=== PATIENT | male | born 1945 | race Caucasian/White ===

== ENCOUNTER 2016-07-06 05:14 | Day surgery (SDC) | payer MEDICARE, BC ==
[~2016-07-06] VITALS: Ht 182.9 cm; Wt 128.3 kg
[~2016-07-06 05:14] MED LIST: ALDACTONE 25MG25 M1 PO; ASPIRIN 81M81 MG/TA2 PO; CARDURA 8MG TAB8 MG PO; COLESTID 1GM1 G PO; COZAAR100 MG PO; CUTIVATE 60 ML60 ML TP; IMODIUM 2MG CAPS2 MG PO; IRON325 M2 PO; LEVOXYL0.125 MG PO; LOMOTIL 0.025 M1 TAB PO; METAMUCIL3.4 GM/DOS PO; NORCO 325 MG-7.1 TAB PO
[2016-07-06 06:23] VITALS: BP 173/77; PULSE 65; TEMP 97.7
[2016-07-06] MEDS ORDERED: SYNTHROID 0.10.15 MG PO (06:32)
[2016-07-06] MEDS ORDERED: COZAAR 50MG50 MG/TAB PO (06:33)
[2016-07-06] MEDS ORDERED: TYLENOL 325MG325 MG PO (06:34)
[2016-07-06] MEDS ORDERED: METAMUCIL3.4 GM/DOS PO (06:36)
[2016-07-06 08:28] VITALS: BP 103/51; PULSE 64; TEMP 97.4
[2016-07-06 08:45] VITALS: BP 98/56; PULSE 55
[2016-07-06 09:00] VITALS: BP 111/61; PULSE 55
[2016-07-06 09:15] VITALS: BP 113/61; PULSE 56
[2016-07-06 09:30] VITALS: BP 107/59; PULSE 56
[2016-07-06] MEDS ORDERED: CEPHALEXIN500 M1 PO (09:44)
[2016-07-06] MEDS ORDERED: NORCO 325 MG-51 TAB PO (09:44)
== END 2016-07-06 10:15 | disposition home or self-care (01) ==
LOC: SDCO 05:14
DX: T81.31XA Disruption of external operation (surgical) wound, not elsewhere classified, initial encounter (principal); I10 Essential (primary) hypertension; Z85.038 Personal history of other malignant neoplasm of large intestine; E03.9 Hypothyroidism, unspecified
CPT/HCPCS: J0690; J2405; J2704; J3010; J7120

== ENCOUNTER → 2016-11-12 | Outpatient (CLI) | payer MEDICARE, BC ==
[~2016-11-12] MED LIST changes: +CEPHALEXIN500 M1 PO; +COZAAR 50MG50 MG/TAB PO; +NORCO 325 MG-51 TAB PO; +SYNTHROID 0.10.15 MG PO; +TYLENOL 325MG325 MG PO
== END ==
LOC: SUN.DIA 14:30
DX: E11.65 Type 2 diabetes mellitus with hyperglycemia (principal); E66.9 Obesity, unspecified; Z68.37 Body mass index [BMI] 37.0-37.9, adult; Z71.3 Dietary counseling and surveillance; I10 Essential (primary) hypertension; Z87.891 Personal history of nicotine dependence
CPT/HCPCS: G0108

== ENCOUNTER → 2016-11-24 | Outpatient (CLI) | payer MEDICARE, BC | LOC: SUN.DIA 09:08 | DX: E11.65 Type 2 diabetes mellitus with hyperglycemia (principal); E66.9 Obesity, unspecified; Z68.37 Body mass index [BMI] 37.0-37.9, adult; Z71.3 Dietary counseling and surveillance; I10 Essential (primary) hypertension; Z87.891 Personal history of nicotine dependence ==

== ENCOUNTER → 2017-01-05 | Outpatient (CLI) | payer MEDICARE, BC | LOC: SUN.DIA 09:35 | DX: E11.21 Type 2 diabetes mellitus with diabetic nephropathy (principal); I11.9 Hypertensive heart disease without heart failure; E66.9 Obesity, unspecified; Z68.36 Body mass index [BMI] 36.0-36.9, adult; Z71.3 Dietary counseling and surveillance; Z87.891 Personal history of nicotine dependence ==

== ENCOUNTER → 2017-05-04 | Outpatient (CLI) | payer MEDICARE, BC | LOC: SUN.DIA 10:17 | DX: E11.21 Type 2 diabetes mellitus with diabetic nephropathy (principal); I11.9 Hypertensive heart disease without heart failure; E66.9 Obesity, unspecified; Z68.34 Body mass index [BMI] 34.0-34.9, adult; Z71.3 Dietary counseling and surveillance; Z87.891 Personal history of nicotine dependence ==

== ENCOUNTER → 2017-11-02 | Outpatient (CLI) | payer MEDICARE, BC | LOC: SUN.DIA 09:55 | DX: E11.21 Type 2 diabetes mellitus with diabetic nephropathy (principal); I11.9 Hypertensive heart disease without heart failure; E66.9 Obesity, unspecified; Z68.34 Body mass index [BMI] 34.0-34.9, adult; Z71.3 Dietary counseling and surveillance; Z87.891 Personal history of nicotine dependence ==

== ENCOUNTER → 2018-01-31 | Outpatient (CLI) | payer MEDICARE, BC | LOC: COL.RAD 07:56 | DX: C78.7 Secondary malignant neoplasm of liver and intrahepatic bile duct (principal); E27.9 Disorder of adrenal gland, unspecified; I77.810 Thoracic aortic ectasia; Z98.890 Other specified postprocedural states; C18.7 Malignant neoplasm of sigmoid colon | CPT/HCPCS: Q9967 ==

== ENCOUNTER 2018-02-14 13:30 | Day surgery (SDC) | payer MEDICARE, BC ==
[~2018-02-14] VITALS: Ht 182.9 cm; Wt 112.3 kg
[~2018-02-14 13:30] MED LIST changes: -TYLENOL 325MG325 MG PO; +TYLENOL 8 HR PO
[2018-02-14] MEDS ORDERED: MOBIC15 MG PO (14:10)
[2018-02-14] MEDS ORDERED: GLUCOPHAGE500 MG/TAB PO (14:10)
[2018-02-14 14:33] VITALS: BP 137/71; PULSE 57; TEMP 98.1
[2018-02-14 15:15] VITALS: BP 116/55; PULSE 56; TEMP 97.4
[2018-02-14 15:30] VITALS: BP 117/65; PULSE 65
[2018-02-14 15:45] VITALS: BP 111/54; PULSE 51
== END 2018-02-14 16:10 | disposition home or self-care (01) ==
LOC: SDCO 13:30
DX: C78.7 Secondary malignant neoplasm of liver and intrahepatic bile duct (principal); Z85.038 Personal history of other malignant neoplasm of large intestine; Z92.3 Personal history of irradiation; E11.40 Type 2 diabetes mellitus with diabetic neuropathy, unspecified; Z79.84 Long term (current) use of oral hypoglycemic drugs; I10 Essential (primary) hypertension; E03.9 Hypothyroidism, unspecified; Z79.899 Other long term (current) drug therapy; Z87.891 Personal history of nicotine dependence
CPT/HCPCS: C1788; J0690; J1644; J1885; J2250; J2405; J2704; J3010; J7120

== ENCOUNTER → 2018-03-17 | Outpatient (REF) ==
[~2018-03-17] MED LIST changes: +GLUCOPHAGE500 MG/TAB PO; +MOBIC15 MG PO
== END ==
LOC: ZLAB.WCH 18:22
DX: Z01.89 Encounter for other specified special examinations (principal)

== ENCOUNTER → 2018-06-07 | Outpatient (REF) | LOC: ZLAB.WCH 16:20 | DX: Z01.89 Encounter for other specified special examinations (principal) ==

== ENCOUNTER → 2018-11-22 | Outpatient (CLI) | payer MEDICARE, BC | LOC: COL.RAD 10:03 | DX: C18.7 Malignant neoplasm of sigmoid colon (principal); E11.9 Type 2 diabetes mellitus without complications; J92.9 Pleural plaque without asbestos; Z95.9 Presence of cardiac and vascular implant and graft, unspecified; Z90.81 Acquired absence of spleen | CPT/HCPCS: Q9967 ==

== ENCOUNTER → 2019-08-02 | Outpatient (CLI) | payer MEDICARE, BC | LOC: COL.VAS 14:16 → COL.RAD 14:16 | DX: M79.605 Pain in left leg (principal); R06.02 Shortness of breath; Z85.038 Personal history of other malignant neoplasm of large intestine | CPT/HCPCS: Q9967 ==

== ENCOUNTER 2019-10-19 20:31 | Emergency (ER) | payer MEDICARE, BC ==
[~2019-10-19] VITALS: Ht 182.9 cm; Wt 114.1 kg
[2019-10-19 20:35] VITALS: TEMP 98
[2019-10-19] MEDS ORDERED: LASIX 40MG TABL40 MG PO (21:00)
[2019-10-19] MEDS ORDERED: COLACE 100100 MG/CAP PO (21:00)
[2019-10-19] MEDS ORDERED: KLOR-CON20 MEQ PO (21:01)
[2019-10-19] MEDS ORDERED: DOXYCYCLINE HY100 MG PO (21:09)
[2019-10-19 21:13] LABS: BASO % 0.2 % (0.0-2.0); GRAN # 6.7 (1.4-6.5); GRAN % 67.8 % (42.2-75.2); HEMATOCRIT 39.7 % (42.0-52.0); HEMOGLOBIN 13.3 g/dl (13.5-18.0); LYMPH # 1.7 (1.2-3.4); LYMPH % 17.1 % (20.0-51.0); MEAN CELL VOLUME 89 fl (80.0-100.0); MEAN CORPUSCULAR HEMOGLOBIN 30 pg (27.0-31.0); MEAN CORPUSCULAR HGB CONC 34 g/dl (33.0-37.0); MEAN PLATELET VOLUME 10.1 fl (7.4-10.4); MONO # 1.5 (0.1-0.6); MONO % 14.7 % (1.7-9.3); PLATELET COUNT 348 K/mm3 (130-400); RED BLOOD COUNT 4.48 M/mm3 (4.20-5.60); REDCELL DISTRIBUTION WIDTH-CV 17.2 % (11.5-14.5)
[2019-10-19 21:15] LABS: PROTHROMBIN TIME 11.2 SECONDS (9.7-12.8)
[2019-10-19 21:18] LABS: PARTIAL THROMBOPLASTIN TIME 28.9 SECONDS (26.0-37.0)
[2019-10-19 21:25] LABS: BILIRUBIN,TOTAL 0.7 mg/dL (0.0-1.0); CALCIUM 9.4 mg/dL (8.4-10.2); CREATININE, serum 1.02 (0.66-1.25); POTASSIUM 4.8 mmol/L (3.4-5.0); TOTAL PROTEIN 6.9 gm/dL (6.4-8.2)
[2019-10-19 21:51] VITALS: BP 132/77; PULSE 72
== END 2019-10-19 22:00 | disposition home or self-care (01) ==
LOC: COL.ER 20:31
PROVIDERS: Emergency Medicine
DX: S31.831A Laceration without foreign body of anus, initial encounter (principal); C18.9 Malignant neoplasm of colon, unspecified; E11.9 Type 2 diabetes mellitus without complications; I10 Essential (primary) hypertension; Z79.82 Long term (current) use of aspirin; Z79.84 Long term (current) use of oral hypoglycemic drugs

== ENCOUNTER 2019-12-09 12:59 | Emergency (ER) | payer MEDICARE, BC ==
[~2019-12-09] VITALS: Ht 182.9 cm; Wt 109.1 kg
[~2019-12-09 12:59] MED LIST changes: +COLACE 100100 MG/CAP PO; +DOXYCYCLINE HY100 MG PO; +KLOR-CON20 MEQ PO; +LASIX 40MG TABL40 MG PO
[2019-12-09 13:11] VITALS: TEMP 97
[2019-12-09 14:01] LABS: COLLECTION METHOD CLEAN CATCH
[2019-12-09 14:04] LABS: BASO # 0.1 (0.0-0.2); EOS # 0.2 (0.0-0.7); EOS % 3.5 % (0-4.0); GRAN # 2.6 (1.4-6.5); GRAN % 42.1 % (42.2-75.2); HEMATOCRIT 39.3 % (42.0-52.0); HEMOGLOBIN 12.9 g/dl (13.5-18.0); LYMPH # 2.2 (1.2-3.4); LYMPH % 36.3 % (20.0-51.0); MEAN CELL VOLUME 91 fl (80.0-100.0); MEAN CORPUSCULAR HEMOGLOBIN 30 pg (27.0-31.0); MEAN CORPUSCULAR HGB CONC 33 g/dl (33.0-37.0); MEAN PLATELET VOLUME 10.1 fl (7.4-10.4); MONO % 16.9 % (1.7-9.3); PLATELET COUNT 402 K/mm3 (130-400); RED BLOOD COUNT 4.32 M/mm3 (4.20-5.60); REDCELL DISTRIBUTION WIDTH-CV 17.2 % (11.5-14.5)
[2019-12-09 14:14] LABS: CALCIUM 9.2 mg/dL (8.4-10.2); CREATININE, serum 0.91 (0.66-1.25); POTASSIUM 3.8 mmol/L (3.4-5.0)
[2019-12-09 14:17] LABS: MUCOUS Present /lpf; PH 5 (5-8); SQUAMOUS EPITHELIAL None Seen /hpf; URINE APPEARANCE Hazy; URINE BACTERIA None Seen /hpf; URINE BILIRUBIN Negative (NEGATIVE); URINE BLOOD 3+ (NEGATIVE); URINE CALCIUM OXALATE CRYSTAL Present /hpf; URINE COLOR Yellow; URINE GLUCOSE 1+ (NEGATIVE); URINE KETONE Trace (NEGATIVE); URINE LEUKOCYTE ESTERASE Negative (NEGATIVE); URINE NITRATE Negative (NEGATIVE); URINE PROTEIN(semi-quant) Negative (NEGATIVE); URINE RBC >50 /hpf; URINE UROBILINOGEN Negative (NEGATIVE)
[2019-12-09] MEDS ORDERED: CEPHALEXIN500 M1 PO ×2 (14:38)
[2019-12-09] MEDS ORDERED: OMNICEF 300MG300 MG PO (14:40)
[2019-12-09 15:21] VITALS: BP 114/68; PULSE 61
== END 2019-12-09 15:21 | disposition home or self-care (01) ==
LOC: COL.ER 12:59
PROVIDERS: Emergency Medicine
DX: R31.9 Hematuria, unspecified (principal); C18.9 Malignant neoplasm of colon, unspecified; I10 Essential (primary) hypertension; E11.9 Type 2 diabetes mellitus without complications; E03.9 Hypothyroidism, unspecified; Z79.82 Long term (current) use of aspirin; Z79.84 Long term (current) use of oral hypoglycemic drugs; Z79.890 Hormone replacement therapy
CPT/HCPCS: J0696; J7040

== ENCOUNTER 2021-01-05 05:45 | Inpatient (IN) | payer MEDICARE, BC ==
[~2021-01-05] VITALS: Ht 170.2 cm; Wt 107.0 kg
[~2021-01-05 05:45] MED LIST changes: +OMNICEF 300MG300 MG PO
[2021-01-05 06:10] LABS: BASO % 0.2 % (0.0-2.0); EOS % 0.1 % (0-4.0); GRAN # 7.3 (1.4-6.5); GRAN % 88.7 % (42.2-75.2); HEMOGLOBIN 14.5 g/dl (13.5-18.0); LYMPH # 0.7 (1.2-3.4); LYMPH % 8.2 % (20.0-51.0); MEAN CELL VOLUME 88 fl (80.0-100.0); MEAN CORPUSCULAR HEMOGLOBIN 29 pg (27.0-31.0); MEAN CORPUSCULAR HGB CONC 33 g/dl (33.0-37.0); MONO # 0.2 (0.1-0.6); MONO % 2.4 % (1.7-9.3); PLATELET COUNT 378 K/mm3 (130-400); RED BLOOD COUNT 4.99 M/mm3 (4.20-5.60); REDCELL DISTRIBUTION WIDTH-CV 17.4 % (11.5-14.5)
[2021-01-05 07:46] LABS: ALBUMIN 4.1 gm/dL (3.5-5.0); BILIRUBIN,TOTAL 0.6 mg/dL (0.0-1.0); CALCIUM 9.6 mg/dL (8.4-10.2); CREATININE, serum 0.88 (0.66-1.25); POTASSIUM 4.8 mmol/L (3.4-5.0); TOTAL PROTEIN 8.3 gm/dL (6.4-8.2)
[2021-01-05 09:04] LABS: COLLECTION METHOD CLEAN CATCH
[2021-01-05 09:11] LABS: MUCOUS Present /lpf; PH 8 (5-8); SQUAMOUS EPITHELIAL 0-2 /hpf; URINE APPEARANCE Clear; URINE BACTERIA None Seen /hpf; URINE BILIRUBIN Negative (NEGATIVE); URINE BLOOD Negative (NEGATIVE); URINE COLOR Yellow; URINE GLUCOSE 2+ (NEGATIVE); URINE KETONE Trace (NEGATIVE); URINE LEUKOCYTE ESTERASE Negative (NEGATIVE); URINE NITRATE Negative (NEGATIVE); URINE PROTEIN(semi-quant) 1+ (NEGATIVE); URINE UROBILINOGEN Negative (NEGATIVE)
[2021-01-05] MEDS ORDERED: GLUCOPHAGE500 MG/TAB PO (10:14)
[2021-01-05] MEDS ORDERED: MAGNESIUM250 M1 PO (10:15)
[2021-01-05 13:33] VITALS: BP 158/69; PULSE 66; TEMP 98
[2021-01-05 16:00] VITALS: BP 128/69; PULSE 63; TEMP 98.4
--- NOTE | 2021-01-05 19:49 | NUR ---
Patient admitted to room 347 this afternoon. Patient seemed unaware when asked health hisory questions, but his did have a med list & allergy list she provided. Patient Ng tube to Lis per orders. Ng tube started work after Ng was irrigated per orders by . Patietn has been NPo, denies nausea & pain. Patient up to the bathroom x2, slow on his feet and unsteady. 2 assist. Ivf per orders. Vitals stable, BP improved. Bedside reprot to [facility].
[2021-01-05 20:11] VITALS: BP 145/80; PULSE 67; TEMP 97.8
--- NOTE | 2021-01-05 23:05 | NUR ---
Pt has been ok.VSS.Pain rated 0/10. Will continue to monitor.
[2021-01-06] VITALS (8 sets, daily range): BP systolic 104–156; BP diastolic 51–74; PULSE 63–76; TEMP 97.4–98.4
[2021-01-06 07:02] LABS: BASO % 0.3 % (0.0-2.0); EOS # 0.1 (0.0-0.7); EOS % 1.8 % (0-4.0); GRAN # 5.8 (1.4-6.5); GRAN % 78.4 % (42.2-75.2); HEMATOCRIT 37.4 % (42.0-52.0); LYMPH % 13.9 % (20.0-51.0); MEAN CELL VOLUME 90 fl (80.0-100.0); MEAN CORPUSCULAR HEMOGLOBIN 29 pg (27.0-31.0); MEAN CORPUSCULAR HGB CONC 33 g/dl (33.0-37.0); MONO # 0.4 (0.1-0.6); MONO % 5.3 % (1.7-9.3); PLATELET COUNT 284 K/mm3 (130-400); RED BLOOD COUNT 4.16 M/mm3 (4.20-5.60); REDCELL DISTRIBUTION WIDTH-CV 17.5 % (11.5-14.5)
[2021-01-06 07:03] LABS: HEMOGLOBIN 12.2 g/dl (13.5-18.0)
[2021-01-06 07:09] LABS: CALCIUM 8.8 mg/dL (8.4-10.2); CREATININE, serum 0.91 (0.66-1.25); POTASSIUM 4.3 mmol/L (3.4-5.0)
--- NOTE | 2021-01-06 10:37 | NUR ---
Patient resting in bed. Ng tube off for PO pills. NPO. He denies nausea. Denies the need for pain medication. Patient up to the bathroom, walker used & more steady on his feet. PT & OT orders obtained. Ivf per orders. Hao klein.
--- NOTE | 2021-01-06 12:21 | NUR ---
Initial visit; Patient thanked Security Advisor for looking in on him and offering God's blessings and to keep him in Security Advisor's prayers.
--- NOTE | 2021-01-06 12:27 | NUR ---
Patient resting in bed. His at bedside. Report he had an episode of abdominal pain, but he went away. Ng remains to [facility]. sip of water.
--- NOTE | 2021-01-06 13:30 | NUR ---
Patient up to the bathroom with OT. NG clamped per orders, will see how patient tolerates. remains at bedside.
--- NOTE | 2021-01-06 15:30 | NUR ---
oven worker met with patient and spouse to discuss discharge planning. Patient resides with spouse and plans to return home upon discharge. Patient stated his primary care provider is Dr Andres and patient denies any difficulty obtaining his prescription. Spouse stated they have presciption coverage with their insurance. Patient has been working with physical therapy and states he has a walker at home. Patient and spouse deny any concerns about returning home. Spouse states they do not have any advance directives and have been given the forms many times. Worker offered to assist with complete of advance directives if patient and spouse deisire. Patient plans to return home with spouse.
--- NOTE | 2021-01-06 18:59 | NUR ---
Patient resting in bed. Ng tube remains clamped. Patient reports he attempted to drink water & he had an episode of pain. Pain subsided. Denies nausea. Spoke to will keep NG tube tonight & keep it clamped. New Ivf ordered. at bedside. Report to Doris hale
--- NOTE | 2021-01-06 21:15 | NUR ---
PPt has been in good spirit. was athe bedside.Pain rated 0/10. Will continue to monitor.
--- NOTE | 2021-01-07 00:23 | NUR ---
Pt is complaining of not feeling well but unable to describe it. I assessed the pt then finally said, he ABD pain 7/10. Morphine 2 mg IV push was given. Will continue to monitor.
[2021-01-07 03:46] VITALS: BP 144/67; PULSE 61; TEMP 98
--- NOTE | 2021-01-07 04:22 | NUR ---
pt said, he is not feeling well and unable to describe what was wrong. Morphine was given and NG tube was connected back to suction and pt has 450 ML out.
[2021-01-07 07:55] VITALS: BP 158/76; PULSE 62; TEMP 98.8
[2021-01-07 09:46] LABS: BASO % 0.5 % (0.0-2.0); EOS # 0.2 (0.0-0.7); EOS % 2.3 % (0-4.0); GRAN # 5.9 (1.4-6.5); GRAN % 71.7 % (42.2-75.2); HEMATOCRIT 40.1 % (42.0-52.0); HEMOGLOBIN 12.9 g/dl (13.5-18.0); LYMPH # 1.5 (1.2-3.4); MEAN CELL VOLUME 89 fl (80.0-100.0); MEAN CORPUSCULAR HEMOGLOBIN 29 pg (27.0-31.0); MEAN CORPUSCULAR HGB CONC 32 g/dl (33.0-37.0); MEAN PLATELET VOLUME 11.6 fl (7.4-10.4); MONO # 0.6 (0.1-0.6); MONO % 7.1 % (1.7-9.3); PLATELET COUNT 295 K/mm3 (130-400); RED BLOOD COUNT 4.49 M/mm3 (4.20-5.60); REDCELL DISTRIBUTION WIDTH-CV 17.5 % (11.5-14.5)
[2021-01-07 10:03] LABS: CALCIUM 8.8 mg/dL (8.4-10.2); CREATININE, serum 0.81 (0.66-1.25); POTASSIUM 3.9 mmol/L (3.4-5.0)
[2021-01-07 11:47] VITALS: BP 164/72; PULSE 63; TEMP 98.5
--- NOTE | 2021-01-07 12:30 | NUR ---
PT. DENIES NAUSEA AT THIS TIME, NG TUBE CLAMPED AND MORNING MEDS ADMINISTERED BY PRIMARY RN DANDRE. PT. AMBULATED WITH PHYSICAL THERAPY AND TOLERATED WELL. IVF INFUSING, BED ALARM ON FOR SAFETY. PT. AND DENY ANY ADDITIONAL NEEDS.
[2021-01-07 15:52] VITALS: BP 161/74; PULSE 67; TEMP 98
[2021-01-07 19:30] VITALS: BP 164/80; PULSE 84; TEMP 97.9
--- NOTE | 2021-01-07 21:57 | NUR ---
Pt has been doing great after the NG tube is out. Pt tolerated food well. Will continue to monitor.
[2021-01-07 23:55] VITALS: BP 143/79; PULSE 63; TEMP 97
[2021-01-08 03:55] VITALS: BP 145/85; PULSE 57; TEMP 97.4
--- NOTE | 2021-01-08 06:30 | NUR ---
REPORT RECEIVED FROM ALEXA WHITE. PATIENT IS ALERT AND RESTING IN BED. CALL LIGHT AND BEDSIDE TABLE ARE WITHIN REACH. WILL CONTINUE TO MONITOR PATIENT THROUGHOUT SHIFT.
[2021-01-08 07:19] VITALS: BP 153/83; PULSE 60; TEMP 98.7
--- NOTE | 2021-01-08 07:52 | NUR ---
pt out to [place] with therapy, ambulating well with steady slow gait.
--- NOTE | 2021-01-08 10:59 | NUR ---
Follow up; Patient and his thanked Weed Sprayer for looking in on Jonathan and keeping him in her prayers. Jonathan seems to be a lot better today.
[2021-01-08 11:48] VITALS: BP 176/80; PULSE 68; TEMP 97.5
--- NOTE | 2021-01-08 17:15 | NUR ---
DISCHARGE INSTSRUCTIONS REVIEWED WITH PATIENT AND . INT DISCONTINUED. TIP INTACT PT TOLERATED WELL.
== END 2021-01-08 17:22 | disposition home or self-care (01) | DRG 390 ==
LOC: COL.ER 05:45 → SURG 08:59
PROVIDERS: Emergency Medicine; ADMIT Surgery
PROC: 0DH67UZ Insertion of Feeding Device into Stomach, Via Natural or Artificial Opening (ICD-10-PCS; principal; 2021-01-05)
DX: K56.600 Partial intestinal obstruction, unspecified as to cause (principal); Z85.038 Personal history of other malignant neoplasm of large intestine; Z79.82 Long term (current) use of aspirin; Z79.84 Long term (current) use of oral hypoglycemic drugs; E66.9 Obesity, unspecified; Z68.36 Body mass index [BMI] 36.0-36.9, adult
CPT/HCPCS: J2270; J2405; J3480; J7030; J7120; Q9967

== ENCOUNTER 2021-01-19 20:35 | Inpatient (IN) | payer MEDICARE, BC ==
[~2021-01-19] VITALS: Ht 180.3 cm; Wt 104.4 kg
[~2021-01-19 20:35] MED LIST changes: +MAGNESIUM250 M1 PO
[2021-01-19 21:32] LABS: HEMATOCRIT 45.2 % (42.0-52.0); HEMOGLOBIN 14.2 g/dl (13.5-18.0); MEAN CELL VOLUME 92 fl (80.0-100.0); MEAN CORPUSCULAR HEMOGLOBIN 29 pg (27.0-31.0); MEAN CORPUSCULAR HGB CONC 31 g/dl (33.0-37.0); MEAN PLATELET VOLUME 10.9 fl (7.4-10.4); PLATELET COUNT 439 K/mm3 (130-400); RED BLOOD COUNT 4.93 M/mm3 (4.20-5.60); REDCELL DISTRIBUTION WIDTH-CV 17.4 % (11.5-14.5)
[2021-01-19 21:52] LABS: ANISOCYTOSIS 1+; BAND 2 % (0-10); EOSINOPHIL 1 % (0-4); HYPOCHROMIA 1+; LYMPHOCYTE 33 % (20.0-51.0); METAMYELOCYTE 1 % (0-0); NEUTROPHILS 61 % (42.0-75.2); POIKILOCYTOSIS 1+
[2021-01-19 21:53] LABS: OVALOCYTES 1+; PLATELET ESTIMATE NORMAL (NORMAL); TEAR DROP CELLS 1+
[2021-01-19 22:13] LABS: ALBUMIN 4.5 gm/dL (3.5-5.0); BILIRUBIN,TOTAL 0.7 mg/dL (0.0-1.0); C-REACTIVE PROTEIN 3.1 mg/dL (0.0-0.9); CALCIUM 10.5 mg/dL (8.4-10.2); CREATININE, serum 1.21 (0.66-1.25); POTASSIUM 5.6 mmol/L (3.4-5.0); TOTAL PROTEIN 9.1 gm/dL (6.4-8.2)
[2021-01-20] MEDS ORDERED: MAG-OX 400400 MG/TAB PO (01:30)
[2021-01-20 08:32] VITALS: BP 154/82; PULSE 68; TEMP 98
[2021-01-20 08:33] LABS: HEMATOCRIT 43.8 % (42.0-52.0); HEMOGLOBIN 13.9 g/dl (13.5-18.0); MEAN CELL VOLUME 91 fl (80.0-100.0); MEAN CORPUSCULAR HEMOGLOBIN 29 pg (27.0-31.0); MEAN CORPUSCULAR HGB CONC 32 g/dl (33.0-37.0); MEAN PLATELET VOLUME 10.8 fl (7.4-10.4); PLATELET COUNT 449 K/mm3 (130-400); RED BLOOD COUNT 4.82 M/mm3 (4.20-5.60); REDCELL DISTRIBUTION WIDTH-CV 17.2 % (11.5-14.5)
[2021-01-20 08:37] LABS: ALBUMIN 4.1 gm/dL (3.5-5.0); BILIRUBIN,TOTAL 0.5 mg/dL (0.0-1.0); CALCIUM 9.3 mg/dL (8.4-10.2); CREATININE, serum 1.11 (0.66-1.25); POTASSIUM 4.5 mmol/L (3.4-5.0); TOTAL PROTEIN 8.2 gm/dL (6.4-8.2)
--- NOTE | 2021-01-20 09:00 | NUR ---
Patient had an episode of emesis. Zofran given. Called -Ng tube orders. Patient refuses at this time. Patient admitted to room 347 from ER. Completed admission paperwork & med list to the best of my ability. Patient not a good historian, no family at bedside.
[2021-01-20 09:27] LABS: ANISOCYTOSIS 2+; BASOPHIL 2 % (0-2); EOSINOPHIL 2 % (0-4); HYPOCHROMIA 2+; LYMPHOCYTE 29 % (20.0-51.0); NEUTROPHILS 44 % (42.0-75.2); PLATELET ESTIMATE INCREASED (NORMAL)
--- NOTE | 2021-01-20 10:23 | NUR ---
Initial visit; Patient bossman Remote Coders for looking in on him and offering God's blessings.
--- NOTE | 2021-01-20 11:30 | NUR ---
After speaking with patient agreeable for NG tube placement. Patient tolerated 14F NG to Left nares. He was thankful for cares given, it went better than patient excpected.
[2021-01-20 11:59] VITALS: BP 139/75; PULSE 71; TEMP 97.7
--- NOTE | 2021-01-20 15:46 | NUR ---
Patient resting in bed. Denies pain & nausea. Resting in bed.
[2021-01-20 16:26] VITALS: BP 141/75; PULSE 74; TEMP 97.9
[2021-01-20 19:15] VITALS: BP 137/75; PULSE 68; TEMP 98.2
--- NOTE | 2021-01-20 19:16 | NUR ---
Ng tube retaped to nose. throat spray provided. bedside report to carolina LIU
--- NOTE | 2021-01-20 22:18 | NUR ---
Pt seems in good spirit. pt does not seem nauseous.Will continue to monitor.
[2021-01-20 23:56] VITALS: BP 125/63; PULSE 74; TEMP 98.3
[2021-01-21 04:32] VITALS: BP 121/58; PULSE 65; TEMP 98.7
[2021-01-21 07:21] VITALS: BP 124/64; PULSE 100; TEMP 97.7
--- NOTE | 2021-01-21 07:32 | NUR ---
Bedside shift report received from Doris. Pt. resting in bed, this RN introducted herself. Pt. agreeable with plan of care, bed alarm on for safety, call light in reach.
[2021-01-21 11:33] VITALS: BP 145/74; PULSE 81; TEMP 97.7
--- NOTE | 2021-01-21 13:33 | NUR ---
Pt. progressing w/ plan of care. Pt. denies N/V and tolerated clear liquid diet for lunch. NG tube clamped per Dr. Grigsby order. Pt OOB in chair, supportive at bedside. Call light in reach, safety ensured.
[2021-01-21 16:00] VITALS: BP 141/79; PULSE 71; TEMP 97.7
--- NOTE | 2021-01-21 17:09 | NUR ---
painting trades worker met withe patient and his spouse to discuss discharge planning. Patient is a readmission and was doing well until he had another small bowel obstruction. Patient has been independent with his activities of daily living and plans to return home upon discharge. Plan is return home with spouse.
--- NOTE | 2021-01-21 19:05 | NUR ---
Report given to Doris. RN Doris familiar with this patient. Pt. resting in bed and needs assessed. Pt. reports he is comfortable. IVF infusing per order, pt. only doing OK with clear liquid diet, not a lot of PO intake. Safety maintained, call light in reach.
[2021-01-21 19:40] VITALS: BP 156/69; PULSE 76; TEMP 98.3
[2021-01-22] VITALS: BP 125/63; PULSE 66; TEMP 97.8
--- NOTE | 2021-01-22 03:26 | NUR ---
Pt has been doing good. order to DC Ng tube is in placed. Pain rated 0/10. will continue to monitor.
[2021-01-22 03:41] VITALS: BP 130/62; PULSE 65; TEMP 97.6
--- NOTE | 2021-01-22 06:29 | NUR ---
pt has been good NG tube is out per order. Will continue to monitor
[2021-01-22 07:59] VITALS: BP 141/75; PULSE 69; TEMP 97.8
[2021-01-22 08:05] LABS: HEMATOCRIT 37.3 % (42.0-52.0); MEAN CELL VOLUME 91 fl (80.0-100.0); MEAN CORPUSCULAR HEMOGLOBIN 29 pg (27.0-31.0); MEAN CORPUSCULAR HGB CONC 31 g/dl (33.0-37.0); MEAN PLATELET VOLUME 10.8 fl (7.4-10.4); PLATELET COUNT 455 K/mm3 (130-400); RED BLOOD COUNT 4.08 M/mm3 (4.20-5.60); REDCELL DISTRIBUTION WIDTH-CV 17.1 % (11.5-14.5)
[2021-01-22 08:19] LABS: ALBUMIN 3.2 gm/dL (3.5-5.0); BILIRUBIN,TOTAL 0.3 mg/dL (0.0-1.0); CALCIUM 8.2 mg/dL (8.4-10.2); CREATININE, serum 0.9 (0.66-1.25); POTASSIUM 3.8 mmol/L (3.4-5.0)
[2021-01-22 08:40] LABS: HEMOGLOBIN 11.7 g/dl (13.5-18.0)
[2021-01-22 09:45] LABS: BAND 1 % (0-10); BASOPHIL 1 % (0-2); EOSINOPHIL 6 % (0-4); LYMPHOCYTE 13 % (20.0-51.0); METAMYELOCYTE 1 % (0-0); NEUTROPHILS 52 % (42.0-75.2)
[2021-01-22 09:46] LABS: ANISOCYTOSIS 1+; PLATELET ESTIMATE INCREASED (NORMAL)
[2021-01-22 09:48] LABS: HYPOCHROMIA 2+
[2021-01-22 09:49] LABS: BURR CELLS 1+; SCHISTOCYTES 1+
[2021-01-22 10:48] LABS: PATHOLOGY DIFF REVIEW OK
--- NOTE | 2021-01-22 11:24 | NUR ---
Patient alert and oriented, answers questions appropriately. See assessment. Abdomen soft, obese, non tender. +Flatus. Tolerated full liquid diet. No c/o at this time.
[2021-01-22 12:00] VITALS: BP 144/67; PULSE 72; TEMP 98
--- NOTE | 2021-01-22 12:42 | NUR ---
Initial visit (this stay) although patient recognized Gin Operator from former visits. Patient doing well and thanked Gin Operator for offering God's blessings.
[2021-01-22 15:25] VITALS: BP 136/71; PULSE 73; TEMP 98.6
--- NOTE | 2021-01-22 17:23 | NUR ---
Discharge instructions reviewed with patient and spouse, verbalized understanding. Discharged via wheelchair to auto/home with spouse at [phone]
== END 2021-01-22 17:24 | disposition home or self-care (01) | DRG 390 ==
LOC: COL.ER 20:35 → SURG 01-20 00:23
PROVIDERS: Emergency Medicine; ADMIT Surgery
DX: K56.609 Unspecified intestinal obstruction, unspecified as to partial versus complete obstruction (principal); Z79.84 Long term (current) use of oral hypoglycemic drugs; Z79.82 Long term (current) use of aspirin; Z87.891 Personal history of nicotine dependence
CPT/HCPCS: A9284; J1650; J2270; J2405; J7030

== ENCOUNTER 2021-03-05 07:01 | Inpatient (IN) | payer MEDICARE, BC ==
[~2021-03-05] VITALS: Ht 180.3 cm; Wt 96.8 kg
[~2021-03-05 07:01] MED LIST changes: +MAG-OX 400400 MG/TAB PO
[2021-03-05 07:29] LABS: HEMATOCRIT 38.9 % (42.0-52.0); HEMOGLOBIN 12.4 g/dl (13.5-18.0); MEAN CELL VOLUME 86 fl (80.0-100.0); MEAN CORPUSCULAR HEMOGLOBIN 27 pg (27.0-31.0); MEAN CORPUSCULAR HGB CONC 32 g/dl (33.0-37.0); MEAN PLATELET VOLUME 10.7 fl (7.4-10.4); PLATELET COUNT 459 K/mm3 (130-400); RED BLOOD COUNT 4.54 M/mm3 (4.20-5.60); REDCELL DISTRIBUTION WIDTH-CV 16.7 % (11.5-14.5)
[2021-03-05 07:42] LABS: ALANINE AMINOTRANSFERASE 20 U/L (4-49); ALBUMIN 4.3 gm/dL (3.5-5.0); ALKALINE PHOSPHATASE 127 U/L (50-136); ANION GAP 19 mmol/L (7-16); AST,SGOT 41 U/L (15-37); BILIRUBIN,TOTAL 0.7 mg/dL (0.0-1.0); BLOOD UREA NITROGEN 22 mg/dL (9-20); CALCIUM 9.7 mg/dL (8.4-10.2); CARBON DIOXIDE 20 mmol/L (22-30); CHLORIDE 96 mmol/L (98-107); CREATININE, serum 0.97 (0.66-1.25); GLUCOSE 132 mg/dL (74-106); LIPASE 260 U/L (23-300); POTASSIUM 4.6 mmol/L (3.4-5.0); SODIUM 135 mmol/L (137-145); TOTAL PROTEIN 9.1 gm/dL (6.4-8.2)
[2021-03-05 07:55] LABS: BAND 1 % (0-10); EOSINOPHIL 1 % (0-4); LYMPHOCYTE 28 % (20.0-51.0); NEUTROPHILS 62 % (42.0-75.2); SCHISTOCYTES 1+; TROPONIN-I < 0.012 ng/mL (0.000-0.035)
[2021-03-05 07:58] LABS: HYPOCHROMIA 1+; PLATELET ESTIMATE INCREASED (NORMAL); TARGET CELLS 1+
[2021-03-05 14:32] LABS: COLLECTION METHOD CLEAN CATCH
[2021-03-05 14:40] LABS: MUCOUS Present /lpf; PH 5 (5-8); SQUAMOUS EPITHELIAL 0-2 /hpf; URINE APPEARANCE Clear; URINE BACTERIA None Seen /hpf; URINE BILIRUBIN Negative (NEGATIVE); URINE BLOOD Negative (NEGATIVE); URINE COLOR Yellow; URINE GLUCOSE Negative (NEGATIVE); URINE KETONE 1+ (NEGATIVE); URINE LEUKOCYTE ESTERASE Negative (NEGATIVE); URINE NITRATE Negative (NEGATIVE); URINE PROTEIN(semi-quant) Negative (NEGATIVE); URINE UROBILINOGEN Negative (NEGATIVE)
[2021-03-05 14:52] VITALS: BP 143/72; PULSE 68; TEMP 97.4
[2021-03-05 16:08] VITALS: BP 148/86; PULSE 74; TEMP 97.5
--- NOTE | 2021-03-05 17:39 | NUR ---
PT CONFUSED, BED ALARM SET, AT BEDSIDE, NG HOOKED UP TO LOW INTERMITTANT SUCTION, IV FLUIDS INFUSING PER ORDER, BS HYPOACTIVE, PT HAS NOT COMPLAINED OF PAIN SINCE TRANSFER TO FLOOR, EDUCATED ON NPO STATUS, NO OTHER NEEDS AT THIS TIME
[2021-03-05 20:05] VITALS: BP 132/68; PULSE 69; TEMP 97.7
[2021-03-06] VITALS (7 sets, daily range): BP systolic 122–136; BP diastolic 48–80; PULSE 64–68; TEMP 97.5–98
--- NOTE | 2021-03-06 02:48 | NUR ---
Patient presses call button at this time and has vomited on his gown. NG tube is assessed and advanced, verifying placement with 30 mls of air. NG tube is also irrigated to loosen secretions and is now draining more efficiently. PRN Zofran order is obtained and administered via IV. Hygeine care is provided. NG drainage is thick and dark green/brown. Patient denies pain at this time. Call light in reach.
[2021-03-06 07:42] LABS: HEMATOCRIT 40.1 % (42.0-52.0); HEMOGLOBIN 12.8 g/dl (13.5-18.0); MEAN CELL VOLUME 86 fl (80.0-100.0); MEAN CORPUSCULAR HEMOGLOBIN 28 pg (27.0-31.0); MEAN CORPUSCULAR HGB CONC 32 g/dl (33.0-37.0); MEAN PLATELET VOLUME 10.8 fl (7.4-10.4); PLATELET COUNT 374 K/mm3 (130-400); RED BLOOD COUNT 4.66 M/mm3 (4.20-5.60)
[2021-03-06 07:55] LABS: CALCIUM 9.7 mg/dL (8.4-10.2); CREATININE, serum 1.11 (0.66-1.25); MAGNESIUM 2.4 mg/dL (1.6-2.3); POTASSIUM 5.4 mmol/L (3.4-5.0)
[2021-03-06 08:07] LABS: ANISOCYTOSIS 1+; BAND 5 % (0-10); EOSINOPHIL 1 % (0-4); LYMPHOCYTE 32 % (20.0-51.0); NEUTROPHILS 52 % (42.0-75.2); PLATELET ESTIMATE NORMAL (NORMAL); POIKILOCYTOSIS 1+; TARGET CELLS 1+
[2021-03-06 08:08] LABS: OVALOCYTES 1+
--- NOTE | 2021-03-06 08:21 | NUR ---
Pt awake in bed, received report, pt alert and carries apropriate conversation, however unable to answer year or facility. Pt is pleasant and has no complaints at this time, denies nausea at this time. Pt stated oncology came in this morning to talk with him. call light within reach, pt stated understanding how to use call light if needs anything.
--- NOTE | 2021-03-06 08:36 | NUR ---
REPORT RECEIVED FROM PRECEPTOR, ALEXA BLACKWOOD. PT AWAKE/ALERT RESTING IN BED. DENIES PAIN. NO NEEDS AT THIS TIME. CALL IBARRA IN REACH
--- NOTE | 2021-03-06 09:25 | NUR ---
Initial visit; Patient thanked for stopping by and states he has been here several times and appreciates Coil Winder visits.
--- NOTE | 2021-03-06 12:23 | NUR ---
I met with patient and his after they had spoken with Dr Disla about a peg tube placement. Pt does realize that there is very little treatment that the physicians can offer safely and that his disease has rapidly progressed. We talked about hospice services and how they can be helpful at this time as the care goal changes to comfort. Ashlee live in [place] in a bi-level house, with 7 steps up or 7 steps down. This has been the cause of several of Kameron's falls. We talked about doing hospice in the home or at a facility. They are familiar with [facility] and have had several friends there. They feel that they need time to talk about their choices together with their son, Maulik. Maulik was approved to be an extra visitor by Ariana Contreras. They have several decisions to make and will need to finalize their decision in the near future.
--- NOTE | 2021-03-06 13:24 | NUR ---
OBTAINED CONSENT FROM PT. NG TUBE FLUSHED. DRAINING WELL, NO OTHER NEEDS AT THIS TIME.
--- NOTE | 2021-03-06 14:39 | NUR ---
Primary nurse was assisted with [id number] patient care by [employer] student Alyssia Martínez and [employer] instructor Nany Valenzuela MSN, RN
--- NOTE | 2021-03-06 16:35 | NUR ---
A palliative care consult was ordered. Reshma, Palliative Care Nurse, met with the patient and his . The patient had a peg tube placed for drainage for palliative treatment. The patient lives in [place] with his . The patient and his are considering hospice. The patient's son was authorized to be up to come up to the hospital. The patient and his family would like some more time to think about hospice an the different hospice options. SW to continue to follow.
--- NOTE | 2021-03-06 17:40 | NUR ---
PT ARRIVED TO FLOOR, ALERT, FLUIDS INFUSING, VITALS CART ATTACHED TO PT , PEG TUBE SITE ASSESSED AND DRESSING CDI, BS OBTAINED, PEG TUBE DRAINING INTO MAURER BAG
--- NOTE | 2021-03-06 19:04 | NUR ---
DR. MARKHAM GAVE VERBAL ORDER FOR ICE CHIPS AND WATER TONIGHT AND CLD TO START TOMORROW. ORDERS PLACED
--- NOTE | 2021-03-06 21:00 | NUR ---
Patient is resting in bed, alert and oriented, VSS, Tele in place, denies nausea, vomiting or pain. IV fluids running, Worthy connected to PEG tube. Draining is green with sediment and white substance. Assessment completed. No further needs at this time. Call light within reach.
[2021-03-07 04:05] VITALS: BP 123/71; PULSE 58; TEMP 97.7
--- NOTE | 2021-03-07 05:41 | NUR ---
Patient has had a calm night. No complains of pain. Continues with dependent draining with lopez. Not much output. Drainag is dark green with sediment. Antibiotics infusing. Shift report will be given.
[2021-03-07 06:44] LABS: HEMATOCRIT 40.6 % (42.0-52.0); HEMOGLOBIN 12.7 g/dl (13.5-18.0); MEAN CELL VOLUME 86 fl (80.0-100.0); MEAN CORPUSCULAR HEMOGLOBIN 27 pg (27.0-31.0); MEAN CORPUSCULAR HGB CONC 31 g/dl (33.0-37.0); MEAN PLATELET VOLUME 11.7 fl (7.4-10.4); PLATELET COUNT 343 K/mm3 (130-400); RED BLOOD COUNT 4.71 M/mm3 (4.20-5.60); REDCELL DISTRIBUTION WIDTH-CV 16.8 % (11.5-14.5)
[2021-03-07 06:55] LABS: CALCIUM 9.2 mg/dL (8.4-10.2); CREATININE, serum 1.36 (0.66-1.25); POTASSIUM 3.7 mmol/L (3.4-5.0)
[2021-03-07 07:20] VITALS: BP 129/70; PULSE 64; TEMP 97.6
[2021-03-07 07:57] LABS: BAND 5 % (0-10); EOSINOPHIL 2 % (0-4); HYPOCHROMIA 1+; LYMPHOCYTE 24 % (20.0-51.0); NEUTROPHILS 58 % (42.0-75.2); OVALOCYTES 1+; PLATELET ESTIMATE NORMAL (NORMAL); POIKILOCYTOSIS 1+; SCHISTOCYTES 1+; TARGET CELLS 1+
--- NOTE | 2021-03-07 10:05 | NUR ---
BS PRESENT AND ACTIVE, PT ALERT AND ORIENTED X2, PEG TUBE DRESSING CDI W/O DRAINAGE OR REDNESS, PEG DRAINING GREEN SEDIMENT AND GREEN FLUID INTO MAURER BAG. 1100 EMPTIED FROM DRAINAGE BAG, IV FLUIDS INFUSING. NO OTHER NEEDS
--- NOTE | 2021-03-07 10:26 | NUR ---
Pt resting quiestly in room, pt pleasant, complaints of occasional abdominal pain relieved by draining PEG tube. IV access patent. bed alarm on, 3 side rails up, pt oriented to room and call light. Pt tolerated breakfast well, took his time eating and stopped when he stated he felt full.
--- NOTE | 2021-03-07 10:36 | NUR ---
Follow-up visit; Patient told Welder Repair how he returned to [facility] and is preparing to . Kameron thanked Welder Repair for visits and Blessings.
--- NOTE | 2021-03-07 12:41 | NUR ---
RECIEVED CALL FROM TELE THAT PT HAD GONE INTO AFIB RVR SUSTAINING HR IN 130'S FOR ABOUT 30 SECONDS AND WENT BACK INTO NS. ASSESSED PT, PT ASYMPTOMATIC, VITALS OBTAINED, JEANETTE RODRIGUEZ NOTFIED AND ORDERED TO CONTINUE TO MONITOR AT THIS TIME.
[2021-03-07 12:52] VITALS: BP 133/71; PULSE 70; TEMP 98.3
--- NOTE | 2021-03-07 14:00 | NUR ---
Syed from [facility] is here now meeting with Kameron and his Iva in the room. spoke with Syed ahead of the visit and reported that Kameron was having periods of confusion. I had met with them earlier and encouraged them to ask questions during this visit.
--- NOTE | 2021-03-07 14:44 | NUR ---
Kameron and Iva felt very good about their conversation with Syed from [facility]. They would like to talk with their son yet before they make a decision but they are feeling good about their visit. Given comfort quilt with explanation.
--- NOTE | 2021-03-07 14:46 | NUR ---
Primary nurse was assisted [facility] [phone] patient care by [employer] student Alyssia Martínez and [employer] instructor Nany Valenzuela MSN, RN
[2021-03-07 16:00] VITALS: BP 120/79; PULSE 67; TEMP 97.5
--- NOTE | 2021-03-07 16:26 | NUR ---
Reshma, palliative care nurse, report that the director social welfare (Syed) from [facility] came and met with the patient and his . The patient and his are considering the hospice house, but would like to discuss this with their son before making a final decision. SW to continue to follow.
--- NOTE | 2021-03-07 17:54 | NUR ---
PT ASSISTED TO BEDSIDE COMMODE, X1 ASSIST, PT URINATED, 1100 DRAINED FROM HIS PEG TUBE DRAINAGE BAG. NO OTHER NEEDS
--- NOTE | 2021-03-07 17:56 | NUR ---
PT HAD UNEVENTFUL DAY. PEG TUBE EMPTYING WELL. NO NEEDS AT THIS TIME. CALL IBARRA IN REACH.
[2021-03-07 19:47] VITALS: BP 117/64; PULSE 65; TEMP 97.9
--- NOTE | 2021-03-07 21:22 | NUR ---
Patient assessed at this time. Alert and oriented to self, place, disoriented to time and situation. Denies having pain and discomfort. Peripheral IV to right wrist with fluids running per orders. Denies SOB and dyspnea. LS CTA. Respirations even and unlabored. HRR. Telemetry in place: normal sinus. Capillary refill less than 3 seconds. Non-tenting skin turgor. BSAx4. Abdomen soft and non-tender. Denies nausea. Peg tube to dependent drainage. Patient voices no questions, needs, or concerns at this time. Resting in bed with call light within reach. Bed alarm on.
[2021-03-08] VITALS: BP 111/77; PULSE 61; TEMP 97.6
[2021-03-08 04:11] VITALS: BP 119/72; PULSE 65; TEMP 98
--- NOTE | 2021-03-08 05:54 | NUR ---
Patient's G-tube got clogged around 0100, and patient had nausea. Received PRN Zofran. Irrigated G-tube, and got 750 mls of green drainage, with thick, black sediment present. Back to dependent drainage and draining well at this time. Denies nausea at this time. Continues on IV fluids per orders. Patient voices no questions, needs, or concerns at this time. Resting in bed with call light within reach.
[2021-03-08 07:54] VITALS: BP 109/64; PULSE 62; TEMP 97.4
[2021-03-08 11:31] VITALS: BP 129/71; PULSE 59; TEMP 97.3
[2021-03-08 15:46] VITALS: BP 127/83; PULSE 64; TEMP 97.5
[2021-03-08 19:35] VITALS: BP 120/68; PULSE 63; TEMP 97.6
--- NOTE | 2021-03-08 20:50 | NUR ---
Patient assessed around 1949. Alert and oriented to self. Denies having pain and discomfort at this time. Peripheral IV to right wrist, with fluids running per orders. Denies having pain and discomfort at this time. Denies having pain and discomfort at this time. Denies SOB and dyspnea. LS CTA. Repirations even and unlabored. HRR. Telemetry in place. Capillary refill less than 3 seconds. Non-tenting skin turgor. BSAx4. G tube at 4 cm dori, draining green drainage, with thick sediment. Did have to irrigate to unclog tube. No edema. Voices no questions, needs, or concerns at this time. Resting in bed with call light within reach. High fall risk precautions in place.
[2021-03-09 03:49] VITALS: BP 105/65; PULSE 54; TEMP 97.6
--- NOTE | 2021-03-09 05:45 | NUR ---
Patient has been resting in bed with call light within reach. High fall risk precautions in place. G tube continues to drain green drainage via dependent drainage. Voices no questions needs, or concerns at this time.
[2021-03-09 07:24] VITALS: BP 124/69; PULSE 58; TEMP 97.6
[2021-03-09 12:55] VITALS: BP 132/80; PULSE 72; TEMP 97.4
--- NOTE | 2021-03-09 14:17 | NUR ---
KEERTHI informed that patient has orders for Hospice and SW informed that patient would like to obtain services at [facility]. Facility contacted and documenation sent to facility for referral review. KEERTHI contacted facility staff and Tanisha stated that services will be assessed and patient would potentially obtain services at facility on 03/10/2021, but not on this due to staffing at facility. KEERTHI informed patient's nurse, nurse ernestinaind she will assist in providing information to family and patient. SW will continue to follow.
[2021-03-09 16:24] VITALS: BP 123/65; PULSE 58
[2021-03-09 20:00] VITALS: BP 127/71; PULSE 59; TEMP 98
--- NOTE | 2021-03-09 20:00 | NUR ---
Initial shift assessment done- denies pain at this time, PEG tube to DD , draining light green drainage,, Tele on, IV fluids of D5 1/2 NS at 75cc/hr, Blood sugar 137 at this time, no insulin required. Very Pleasant- watching the Lateral SV game- patient going to [facility] tomorrow
[2021-03-10 00:03] VITALS: BP 106/67; PULSE 57
[2021-03-10 04:35] VITALS: BP 111/68; PULSE 55; TEMP 97.5
--- NOTE | 2021-03-10 05:00 | NUR ---
Has been resting well tonight-- Did use urinal once tonight for 300cc, Did have 800cc out of PEG to DD, VSS, Blood sugar 164 this morning.
[2021-03-10 07:53] VITALS: BP 101/75; PULSE 56; TEMP 97.6
--- NOTE | 2021-03-10 09:38 | NUR ---
I met with patient and his this morning. They are planning on going to the [facility] [place]. I called Casie at [facility] and she reported that they can take patient tomorrow at 11 am. We will have covid testing today. Patient and his have been advised of admission date and time and seem pleased. I have communicated this to his social media intern, Avinash, and to the hospitalist/treatment team.
--- NOTE | 2021-03-10 09:43 | NUR ---
PT READY FOR DISCHARGE TO HOSPICE HOUSE, PEG DRAINING GREEN FLUID WITH SEDIMENT. PT PLEASANT, AOX2, AT BEDSIDE, PT ASSESSED, FLUIDS HANGING AT ORDERED RATE, PT REQUESTING TO WALK, PT HAS UNSTEADY GAIT, PT ORDERED TO WORK WITH HIM FOR COMFORT PURPOSES, NO OTHER NEEDS
--- NOTE | 2021-03-10 10:26 | NUR ---
Follow-up visit; Patient thanked Ammunition Components Inspector for looking in on him and offering a blessing and keeping him in her prayers.
--- NOTE | 2021-03-10 11:39 | NUR ---
PT REPORTING SACRAL PAIN, PT REPOSITIONED IN BED, CUT TO R SIDE OF GLUTEUS NOTED AND PT REPORTS THAT IS CHRONIC AND HAS BEEN THERE "FOR A LONG TIME". DRESSING PLACED, NO PT REPEATEDLY DENIES NEED FOR PAIN MEDICATION.
[2021-03-10 12:54] VITALS: BP 129/69; PULSE 58; TEMP 98.3
[2021-03-10 17:14] VITALS: BP 120/70; PULSE 61; TEMP 97.7
--- NOTE | 2021-03-10 17:15 | NUR ---
PT UP WALKING WITH PT TODAY, DRESSING PLACED ON THE WOUND THAT "HAS BEEN THERE FOREVER". PLAN TO DC TOMORROW TO HOSPICE, PT HAS AT BEDSIDE, IV FLUIDS INFUSING, PT HAS NOT REQUIRED INSULIN TODAY, PT AOX2, NO OTHER NEEDS AT THIS TIME
[2021-03-10 19:28] VITALS: BP 119/63; PULSE 66
[2021-03-11 00:37] VITALS: BP 109/64; PULSE 58; TEMP 97.6
[2021-03-11 03:26] VITALS: BP 121/67; PULSE 59; TEMP 98.4
--- NOTE | 2021-03-11 07:20 | NUR ---
REPORT RECEIVED FROM PRECEPTOR ALEXA BLACKWOOD. PT ASLEEP IN BED. BREATHING REGULAR, UNLABORED. CALL IBARRA IN REACH.
[2021-03-11 07:58] VITALS: BP 125/65; PULSE 60; TEMP 98
--- NOTE | 2021-03-11 09:12 | NUR ---
[facility] accepts patient to [facility]ospice [facility]. Transportation arranged by KEERTHI Rodriguez for 11am. Orders faxed
[2021-03-11] MEDS ORDERED: ZOFRAN ODT8 MG PO (09:21)
[2021-03-11] MEDS ORDERED: ROXANOL 20MG20 MG/ML SL (09:21)
[2021-03-11] MEDS ORDERED: TRANSDERM-0.5 MG/21 TD (09:21)
[2021-03-11] MEDS ORDERED: ATIVAN 0.50.5 MG/TAB PO (09:21)
--- NOTE | 2021-03-11 09:45 | NUR ---
Medical Biller Coder collaborated with Jasmyne RN and Reshma Palliative RN about transportation and they advised that patient would be appropriate for transport by private car if patient's , Iva is comfortable driving. KEERTHI contacted Iva who advised she will drive patient as long as staff will be able to assist patient in and out of her vehicle. KEERTHI confirmed with Casie at the [facility] that their staff will assist patient out of the car upon arrival. KEERTHI updated patient's RN. Iva will pick and shovel man patient around 1100 to transport him to [facility]. KEERTHI faxed discharge orders and negative COVID results.
[2021-03-11 10:02] VITALS: BP 125/65; PULSE 60; TEMP 98
--- NOTE | 2021-03-11 10:15 | NUR ---
Follow-up visit; Patient and Storekeeper Steward had a visit about Kameron's spirituality and his moving over to [facility]. Patient thanked Storekeeper Steward for what she does and how she has helped him. Storekeeper Steward was humbled by Kameron and offered him God's speed and a [place].
--- NOTE | 2021-03-11 10:21 | NUR ---
I met with Kameron this morning. He tells me that going to the Hospice House is feeling pretty real now and he feels sad to be leaving the hospital staff because they have been so wonderful! He is making plans for some of his belongings and has talked with his son and daily about his plans and they are good support. His discharge is planned for 11am today with his transporting him. Discharge orders have been sent to Casie at [facility]. Support provided.
--- NOTE | 2021-03-11 10:49 | NUR ---
IV REMOVED FROM RW, TELE REMOVED, PT DRESSED AND READY FOR DISCHARGE, PEG TUBE DEPENDENT DRAINAGE EMPTIED AND CHARTED IN I/O. PAPERWORK GIVEN TO PT , BELONGINGS TAKEN DOWNSTAIRS PT WAS ESCORTED OUT IN A WHEELCHAIR. NO OTHER NEEDS AT THIS TIME
== END 2021-03-11 10:45 | disposition hospice, inpatient (51) | DRG 374 ==
LOC: COL.ER 07:01 → MEDICAL 09:19
PROVIDERS: Emergency Medicine; Physician Assistant; Surgery; ADMIT Student in an Organized Health Care Education/Training Program
PROC: 0DH64UZ Insertion of Feeding Device into Stomach, Percutaneous Endoscopic Approach (ICD-10-PCS; principal; 2021-03-06 16:30)
DX: C20 Malignant neoplasm of rectum (principal); K65.1 Peritoneal abscess; N17.9 Acute kidney failure, unspecified; E11.9 Type 2 diabetes mellitus without complications; E03.9 Hypothyroidism, unspecified; I10 Essential (primary) hypertension; E87.5 Hyperkalemia; E83.42 Hypomagnesemia; Z20.822 Contact with and (suspected) exposure to COVID-19; Z51.5 Encounter for palliative care; Z66 Do not resuscitate; D47.3 Essential (hemorrhagic) thrombocythemia; T73.0XXA Starvation, initial encounter
CPT/HCPCS: 99222-AI; 99232-AI; 99233-AI; 99239; J1650; J2405; J2543; J2704; J3010; J7030; Q9967